=== PATIENT | male | born 1985 | race Caucasian/White ===

== ENCOUNTER 2016-10-24 09:42 | Emergency (ER) | payer BC ==
[2016-10-24 10:30] LABS: BASOPHILS 0.1 %; BASOPHILS ABSOLUTE 0.01 10/3/uL (0.0-0.16); EOSINOPHILS 0 %; ER CBC TAT 0 Hrs 09 Mins; HEMATOCRIT 50.2 % (40.0-51.0); HEMOGLOBIN 18.2 g/dL (13.6-17.8); IMMATURE GRANULOCYTES 7.2 %; IMMATURE GRANULOCYTES ABSOLUTE 0.62 10/3/uL (0.0-0.11); LYMPHOCYTES 8.2 %; LYMPHOCYTES ABSOLUTE 0.71 10/3/uL (0.67-4.30); MANUAL DIFF NO %; MEAN CORPUS HGB CONC 36.3 g/dL (32.0-36.0); MEAN CORPUSCULAR VOLUME 90.9 fL (80-100); MEAN PLATELET VOLUME 11.1 fL (9.2-13.0); MONOCYTES 2.3 %; NEUTROPHILS 82.2 %; PLATELET COUNT 84 10/3/uL (150-400); RBC DISTRIBUTION WIDTH 12.7 % (12.0-16.0); RED CELL COUNT 5.52 10/6/uL (4.7-6.1); WHITE BLOOD CELLS 8.6 10/3/uL (4.5-10.5)
[2016-10-24 10:44] LABS: A/G RATIO 0.7 (0.7-1.9); ALBUMIN 3.2 G/DL (3.5-5.0); ALKALINE PHOSPHATASE 55 U/L (45-117); BUN (BLOOD UREA NITROGEN) 21 MG/DL (6-23); CALCIUM, SERUM 8.5 MG/DL (8.5-10.4); CHLORIDE, SERUM 102 MMOL/L (96-112); CO2 (CARBON DIOXIDE) 22 MMOL/L (24-34); CREATININE 1.77 MG/DL (0.70-1.30); GFR AFRICAN AMERICAN 58 ML/MIN (>=60); GFR NON AFRICAN AMERICAN 50 ML/MIN (>=60); GLOBULIN 4.3 G/DL (2.5-4.1); GLUCOSE, SERUM 138 MG/DL (60-99); POTASSIUM, SERUM 3.9 MMOL/L (3.5-5.3); SGOT(AST) 62 U/L (5-40); SGPT(ALT) 59 U/L (5-65); SODIUM, SERUM 135 MMOL/L (135-148); TOTAL BILIRUBIN 1.1 MG/DL (0-1.2); TOTAL PROTEIN 7.5 G/DL (6.0-8.5)
[2016-10-24 10:48] LABS: INFLUENZA A SCREEN NEGATIVE (NEGATIVE); INFLUENZA B SCREEN NEGATIVE (NEGATIVE)
[2016-10-24 11:06] LABS: BAND NEUTROPHILS 55 %; ER DIFF TAT 0 Hrs 45 Mins; IMMATURE GRANS ABSOLUTE (CALC) 0.09 10/3/uL (0.0-0.11); LYMPHOCYTES 14 %; METAMYELOCYTES 1 %; MONOCYTES 2 %; MONOCYTES ABSOLUTE (CALC) 0.17 10/3/uL (0.21-1.20); NEUTROPHILS ABSOLUTE (CALC) 7.14 10/3/uL (2.02-8.40); SEGMENTED NEUTROPHIL (0) 28 %; TOTAL NUCLEATED CELLS 100
[2016-10-24 11:07] LABS: PLATELET ESTIMATE DEC (ADEQUATE)
[2016-10-24 11:08] LABS: RBC MORPHOLOGY NORM (NORMAL)
== END 2016-10-24 12:02 | disposition home or self-care (01) ==
LOC: ER 09:42
PROVIDERS: Emergency Medicine
DX: J18.1 Lobar pneumonia, unspecified organism (principal); F17.200 Nicotine dependence, unspecified, uncomplicated; Z88.0 Allergy status to penicillin
CPT/HCPCS: 71020; 80053; 85025; 87804; 94640; 96374; 99284